=== PATIENT | female | born 1955 | race Caucasian/White ===

== ENCOUNTER → 2021-10-06 08:55 | Outpatient (CLI) | payer MEDICARE, OTHER, SELFPAY ==
--- NOTE | 2021-10-06 | DI.US.S_ITS ---
LIMITED ULTRASOUND OF RIGHT BREAST: 10/06/2021 CLINICAL: Palpable right breast lump. Comparison is made to exams dated: 10/06/2021 mammogram - [facility], 08/02/2020 mammogram - [facility], 07/11/2018 mammogram, and 02/11/2014 mammogram - [facility]. Real-time ultrasound of the right breast 5-6 o'clock region was performed. Soriano scale images of the real-time examination were reviewed. No significant abnormalities were seen sonographically in the right breast. Specifically, no finding to correspond to the patient's palpable abnormality or the possible asymmetry on mammogram. IMPRESSION: PROBABLY BENIGN There is no sonographic correlate to the patient's palpable abnormality. A follow-up right mammogram in 6 months is recommended to demonstrate stability of the incidental mammographic asymmetry which is probably overlapping glandular tissue. Findings and recommendations were conveyed to the patient at time of exam. This exam was interpreted at Station ID: [id number]. Electronically Signed By: Carina mcgee/:10/06/2021 11:47:19 letter sent: Followup Recommended Ultrasound BI-RADS: 3 Probably benign
--- NOTE | 2021-10-06 | DI.US.S_ITS ---
LIMITED ULTRASOUND OF LEFT BREAST: 10/06/2021 CLINICAL: Palpable left breast lump. Comparison is made to exams dated: 10/06/2021 mammogram - [facility], [facility], and [facility] mammogram - [facility]. Real-time ultrasound of the left breast 6 o'clock region was performed. Soriano scale images of the real-time examination were reviewed. No significant abnormalities were seen sonographically in the left breast. Specifically, no finding to correspond to the patient's palpable abnormality or incidental mammographic asymmetry. IMPRESSION: PROBABLY BENIGN There is no sonographic correlate to the patient's palpable abnormality or the mammographic asymmetry. A follow-up left mammogram in 6 months is recommended to demonstrate stability of the mammographic finding which is probably overlapping glandular tissue. Findings and recommendations were conveyed to the patient at time of exam. This exam was interpreted at Station ID: [id number]. Electronically Signed By: Carina mcgee/:10/06/2021 11:48:54 letter sent: Followup Recommended Ultrasound BI-RADS: 3 Probably benign
--- NOTE | 2021-10-06 | DI.MG.S_ITS ---
BILATERAL DIGITAL DIAGNOSTIC MAMMOGRAM 3D/2D: 10/06/2021 CLINICAL: Palpable lumps in both breasts. Comparison is made to exams dated: 08/02/2020 mammogram - [facility], 07/11/2018 mammogram, and 02/11/2014 mammogram - [facility]. The tissue of both breasts is heterogeneously dense. This may lower the sensitivity of mammography. There is a possible developing irregular equal density asymmetry with an obscured and circumscribed margin in the right breast central to the nipple anterior depth. This is not seen in additional views. This is more prominent and might correlate as palpated, though is slightly more lateral. There is a possible irregular focal asymmetry in the left breast central to the nipple anterior depth. This is less prominent compared to prior exams and might correlate as palpated, though is again, slightly more lateral. No other significant masses or calcifications are seen in either breast. IMPRESSION: INCOMPLETE: NEEDS ADDITIONAL IMAGING EVALUATION The possible developing irregular equal density asymmetry possibly correlates to the palpable abnormality in the right breast central to the nipple anterior depth most likely is a post-surgical scar given prior surgery in this area, but remains indeterminate. An ultrasound is recommended. The possible irregular focal asymmetry in the left breast central to the nipple anterior depth possibly correlates to the palpable abnormality, most likely is fibroglandular tissue but remains indeterminate. An ultrasound is recommended. Bilateral breast ultrasound was performed immediately following this exam. This exam was interpreted at Station ID: [id number]. NOTE: For mammograms, a report in lay terms will be sent to the patient. Approximately 15% of breast malignancies will not be visualized mammographically. In the management of a palpable breast mass, a negative mammogram must not discourage biopsy of a clinically suspicious lesion. Electronically Signed By: Carina mcgee/:10/06/2021 10:10:49 ACR BI-RADS Category 0: Incomplete [id number]
== END ==
PROVIDERS: PCP Internal Medicine; Referring Provider Internal Medicine; Visit Provider Internal Medicine
DX: R92.8 Other abnormal and inconclusive findings on diagnostic imaging of breast (principal); N63.14 Unspecified lump in the right breast, lower inner quadrant; N63.24 Unspecified lump in the left breast, lower inner quadrant
CPT/HCPCS: 76642; 77066; G0279

== ENCOUNTER → 2022-05-29 09:55 | Outpatient (CLI) | payer MEDICARE, OTHER, SELFPAY ==
--- NOTE | 2022-05-29 | DI.MG.S_ITS ---
BILATERAL DIGITAL DIAGNOSTIC MAMMOGRAM 3D/2D SHORT-TERM FOLLOW-UP: 05/29/2022 CLINICAL: Short term follow up for bilateral breasts. Comparison is made to exams dated: 10/06/2021 mammogram - [facility], 08/02/2020 mammogram - [facility], and 07/11/2018 mammogram - [facility]. Both breasts are heterogeneously dense, which may obscure small masses (category c / 51-75% glandular tissue). There is a possible focal asymmetry in the right breast central to the nipple anterior depth. This is not significantly changed and was not seen on the prior ultrasound. There is a possible irregular focal asymmetry in the left breast central to the nipple anterior depth. This is not significantly changed and was not seen on the prior ultrasound. No other significant masses or calcifications are seen in either breast. IMPRESSION: PROBABLY BENIGN Stable right breast focal asymmetry most likely is fibroglandular tissue and is probably benign. Stable left breast focal asymmetry most likely is fibroglandular tissue and is probably benign. A follow-up mammogram in 6 months is recommended to demonstrate stability. Exam findings were conveyed to the patient. Based on the Tyrer Cuzick model (a risk assessment model) the patient's lifetime risk is 10.6% and her 10 year risk is 5.9%. According to the ACR, ACS, and NCCN guidelines, an annual breast MRI exam along with mammogram is recommended if the patient's lifetime risk is 20% or greater. This exam was interpreted at Station ID: [id number]. NOTE: For mammograms, a report in lay terms will be sent to the patient. Approximately 15% of breast malignancies will not be visualized mammographically. In the management of a palpable breast mass, a negative mammogram must not discourage biopsy of a clinically suspicious lesion. Electronically Signed By: Weston Valentine M.D. [facility]/:05/29/2022 10:37:43 letter sent: Followup Recommended ACR BI-RADS Category 3: Probably benign [id number]
== END ==
PROVIDERS: PCP Internal Medicine; Referring Provider Internal Medicine; Visit Provider Internal Medicine
DX: R92.8 Other abnormal and inconclusive findings on diagnostic imaging of breast (principal); N64.89 Other specified disorders of breast
CPT/HCPCS: 77066; G0279

== ENCOUNTER → 2022-11-26 10:04 | Outpatient (CLI) | payer MEDICARE, OTHER, SELFPAY ==
--- NOTE | 2022-11-26 | DI.MG.S_ITS ---
BILATERAL DIGITAL DIAGNOSTIC MAMMOGRAM 3D/2D SHORT-TERM FOLLOW-UP: 11/26/2022 CLINICAL: Short term follow up for bilateral breasts. Comparison is made to exams dated: 05/29/2022 mammogram, 10/06/2021 mammogram - [facility], and 08/02/2020 mammogram - [facility]. Both breasts are heterogeneously dense, which may obscure small masses (category c / 51-75% glandular tissue). The possible asymmetry in the right breast central to the nipple anterior depth is not reproduced and presumably represented superimposed breast tissue. The possible focal asymmetry in the left breast central to the nipple anterior depth is not reproduced and presumably represented superimposed breast tissue. No other significant masses or calcifications are seen in either breast. IMPRESSION: BENIGN There is no mammographic evidence of malignancy. Return to annual mammogram screening schedule is recommended. Based on the Tyrer Cuzick model (a risk assessment model) the patient's lifetime risk is 10.0% and her 10 year risk is 6.0%. According to the ACR, ACS, and NCCN guidelines, an annual breast MRI exam along with mammogram is recommended if the patient's lifetime risk is 20% or greater. This exam was interpreted at Station ID: [id number]. NOTE: For mammograms, a report in lay terms will be sent to the patient. Approximately 15% of breast malignancies will not be visualized mammographically. In the management of a palpable breast mass, a negative mammogram must not discourage biopsy of a clinically suspicious lesion. Electronically Signed By: Ameena Guardado M.D. lk/:11/26/2022 11:23:52 letter sent: Normal Exam ACR BI-RADS Category 2: Benign Finding(s) 3342F
== END ==
PROVIDERS: PCP Internal Medicine; Referring Provider Internal Medicine; Visit Provider Internal Medicine
DX: R92.8 Other abnormal and inconclusive findings on diagnostic imaging of breast (principal)
CPT/HCPCS: 77066; G0279

== ENCOUNTER → 2024-01-23 12:39 | Outpatient (CLI) | payer MEDICARE, OTHER, SELFPAY ==
--- NOTE | 2024-01-23 12:41 | DI.MG.S_ITS ---
BILATERAL DIGITAL SCREENING MAMMOGRAM 3D/2D WITH CAD: 01/23/2024 CLINICAL: Routine screening. Comparison is made to exams dated: 11/26/2022 mammogram, 10/06/2021 mammogram, 05/29/2022 mammogram - [facility], and 08/02/2020 mammogram - [facility]. There are scattered areas of fibroglandular density (category b / 25%-50% glandular tissue). Current study was also evaluated with a Computer Aided Detection (CAD) system. No significant masses, calcifications, or other findings are seen in either breast. There has been no significant interval change. IMPRESSION: NEGATIVE There is no mammographic evidence of malignancy. A 1 year screening mammogram is recommended. Based on the Tyrer Cuzick model (a risk assessment model) the patient's lifetime risk is 6.3% and her 10 year risk is 4.0%. According to the ACR, ACS, and NCCN guidelines, an annual breast MRI exam along with mammogram is recommended if the patient's lifetime risk is 20% or greater. This exam was interpreted at Station ID: [id number]. NOTE: For mammograms, a report in lay terms will be sent to the patient. Approximately 15% of breast malignancies will not be visualized mammographically. In the management of a palpable breast mass, a negative mammogram must not discourage biopsy of a clinically suspicious lesion. Electronically Signed By: Carina mcgee/mitra:01/23/2024 16:53:02 letter sent: Normal Exam ACR BI-RADS Category 1: Negative
== END ==
PROVIDERS: PCP Internal Medicine; Referring Provider Internal Medicine; Visit Provider Internal Medicine
DX: Z12.31 Encounter for screening mammogram for malignant neoplasm of breast (principal)
CPT/HCPCS: 77063; 77067